=== PATIENT | male | born 1985 | race Hispanic/Latino ===

== ENCOUNTER 2016-11-06 16:23 | Emergency (ER) | payer SELFPAY ==
[~2016-11-06] VITALS: Ht 170.2 cm; Wt 85.0 kg
[~2016-11-06 16:23] MED LIST: ACULAR 0.5100 DROP/5 RIGHT EYE; ERYTHROMYC1 APPLICAT RIGHT EYE; FIORICET,ESG1 TABLET PO; FLONASE16 G1 BOTH NARES; HYDROCODON-ACE1 EAC7 PO; MOTRIN800 MG PO; TORADOL10 MG PO; ZYRTEC10 M2 PO; nohome
[2016-11-06] MEDS ORDERED: KEFLEX500 MG PO (19:02)
[2016-11-06 19:37] VITALS: BP 119/76
== END 2016-11-06 19:46 | disposition home or self-care (01) ==
LOC: EME 16:23
PROC: 3E0234Z Introduction of Serum, Toxoid and Vaccine into Muscle, Percutaneous Approach (ICD-10-PCS; principal; 2016-11-06)
DX: S61.421A Laceration with foreign body of right hand, initial encounter (principal); W25.XXXA Contact with sharp glass, initial encounter; W45.8XXA Other foreign body or object entering through skin, initial encounter; Z23 Encounter for immunization; F17.200 Nicotine dependence, unspecified, uncomplicated
CPT/HCPCS: 73130; 99281; 99284

== ENCOUNTER 2017-06-04 14:56 | Emergency (ER) | payer SELFPAY ==
[~2017-06-04] VITALS: Ht 170.2 cm; Wt 82.7 kg
[~2017-06-04 14:56] MED LIST changes: +KEFLEX500 MG PO
[2017-06-04 15:59] LABS: HEMATOCRIT 46.9 % (38.0-50.0); HEMOGLOBIN 16.5 G/DL (12.5-16.6); MCH 30.7 PG (29.0-34.0); MCHC 35.2 G/DL (30.0-36.0); MCV 87.2 FL (86-99); PLATELET COUNT 239 K/uL (156-360); RBC DIS.WIDTH-CV 12.1 % (11.8-14.6); RBC DIS.WIDTH-SD 38.5 % (39-53); RED BLOOD COUNT 5.38 M/uL (4.00-5.50); WHITE BLOOD COUNT 7.8 K/uL (4.1-10.2)
[2017-06-04 16:11] LABS: ALBUMIN 4.3 g/dL (3.2-4.8); CHLORIDE 107 mEq/L (99-109); POTASSIUM 4.1 mEq/L (3.7-5.4); SODIUM 140 mEq/L (136-147)
[2017-06-04 16:14] LABS: GLUCOSE 126 mg/dL (70-99); TOTAL PROTEIN 7.7 g/dL (6.4-8.3)
[2017-06-04 16:15] LABS: TOTAL BILIRUBIN 0.6 mg/dL (0.0-1.0)
[2017-06-04 16:17] LABS: ALKALINE PHOSPHATASE 103 IU/L (3-129); CREATININE 0.9 mg/dL (0.6-1.3); GFR ESTIMATE (CALCULATED) > 59 mL/min/ (58.99-99999)
[2017-06-04 16:18] LABS: UREA NITROGEN (BUN) 12 mg/dL (9-23)
[2017-06-04 16:19] LABS: AST (GOT) 30 IU/L (2-34)
[2017-06-04 16:20] LABS: ALT (GPT) 67 IU/L (3-49)
[2017-06-04 19:28] LABS: APPEARANCE SL.HAZY ((CLEAR)); BILIRUBIN NEGATIVE; BLOOD NEGATIVE; COLOR YELLOW ((YELLOW)); GLUCOSE (STRIP) NEGATIVE; KETONES NEGATIVE; LEUKOCYTES NEGATIVE; NITRITE NEGATIVE; PROTEIN (STRIP) NEGATIVE
[2017-06-04 19:31] LABS: BACTERIA RARE /HPF; EPITHELIAL CELLS RARE /HPF; MUCUS TRACE /LPF; RED BLOOD CELLS 0-5 /HPF (0-5); UCUL ADDED? NO; WHITE BLOOD CELLS 0-5 /HPF (0-5)
[2017-06-04 22:45] VITALS: BP 108/57
[2017-06-04 23:37] LABS: C DIFF TOXIN NEGATIVE (NEGATIVE)
== END 2017-06-04 22:45 | disposition left against medical advice (07) ==
LOC: EME 14:56
PROVIDERS: Physician Assistant
DX: R10.30 Lower abdominal pain, unspecified (principal); R11.2 Nausea with vomiting, unspecified; R19.7 Diarrhea, unspecified; F17.200 Nicotine dependence, unspecified, uncomplicated
CPT/HCPCS: 74176; 80053; 81003; 85027; 87493; 99281; 99283